=== PATIENT | female | born 1960 | race Caucasian/White ===

== ENCOUNTER 2017-08-09 14:50 | Inpatient (IN) | payer OTHER ==
[2017-08-09] MEDS ORDERED: MOM 30ML SUSPENSION UDC PO (16:15)
[2017-08-09] MEDS ORDERED: ALBUTEROL 90 MCG/ACT 8GM HFA INHALER INH (18:30)
[2017-08-09] MEDS: QUEtiapine FUMARATE 100 MG TAB PO (20:34)
[2017-08-09] MEDS: traZODone 50 MG TAB PO (20:34)
[2017-08-10] MEDS: OLANZapine ORAL DISINTEGRATING TAB 5MG PO (12:01)
[2017-08-10] MEDS: FERROUS SULFATE 325MG TAB PO (16:58)
[2017-08-10] MEDS: OMEPRAZOLE 20 MG CAP PO (16:58)
[2017-08-10] MEDS: DOCUSATE SODIUM 100 MG CAP PO (16:58)
[2017-08-10] MEDS: ACETAMINOPHEN TAB 650MG DOSE (2X325MG) PO (17:40)
[2017-08-10] MEDS: traZODone 50 MG TAB PO (21:17)
[2017-08-10] MEDS: QUEtiapine FUMARATE 100 MG TAB PO (21:17)
[2017-08-11] MEDS: MAALOX 30 ML SUSP *UDC PO ×2 (06:50→12:33)
[2017-08-11] MEDS: QUEtiapine FUMARATE 25 MG TAB PO (08:22)
[2017-08-11] MEDS: OMEPRAZOLE 20 MG CAP PO (08:22)
[2017-08-11] MEDS: DOCUSATE SODIUM 100 MG CAP PO (08:22)
[2017-08-11] MEDS: FERROUS SULFATE 325MG TAB PO (08:22)
[2017-08-11] MEDS: ACETAMINOPHEN TAB 650MG DOSE (2X325MG) PO (13:37)
== END 2017-08-11 14:30 | disposition home or self-care (01) | DRG 750 ==
LOC: M PSY 08-10 07:07 → M ED 14:50 → M ED INP 16:01 → M PSY 17:03
DX: F25.0 Schizoaffective disorder, bipolar type (principal); K21.9 Gastro-esophageal reflux disease without esophagitis; J45.909 Unspecified asthma, uncomplicated; Z91.14 Patient's other noncompliance with medication regimen; Z88.6 Allergy status to analgesic agent; Z91.040 Latex allergy status; Z91.048 Other nonmedicinal substance allergy status